=== PATIENT | female | born 1990 | race Caucasian/White ===

== ENCOUNTER 2019-05-01 05:32 | Inpatient (IN) ==
[2019-05-01] MEDS ORDERED: KEFZOL 1 GM/D5W 1 GM/50 ML IVPB IV PRN (05:36)
[2019-05-01] MEDS ORDERED: ZOFRAN IV PRN (05:36)
[2019-05-01] MEDS ORDERED: PEPCID IV PRN (05:36)
[2019-05-01] MEDS ORDERED: REGLAN PO PRN (05:36)
[2019-05-01] MEDS ORDERED: STADOL IV PRN (05:36)
[2019-05-01] MEDS ORDERED: PEPCID PO PRN ×2 (05:36)
[2019-05-01] MEDS ORDERED: TYLENOL PO PRN (05:36)
[2019-05-01] MEDS ORDERED: SODIUM CHLORIDE 0.9% INJ SCH (05:45)
[2019-05-01 06:18] LABS: BASO# 0.04 X1000 (0.0-0.2); BASO% 0.2 % (0.0-0.8); EOS% 1.2 % (0.0-10.0); HEMATOCRIT 35.1 % (37.0-47.0); HEMOGLOBIN 11.7 g/dL (12.0-16.0); IMM GRAN# 0.08 X1000 (0.0-0.04); IMM GRAN% 0.5 % (0.0-0.5); LYMPH# 2.69 X1000 (1.2-3.4); LYMPH% 16.5 % (20.5-51.1); MCH 29.2 PG (27-31); MCHC 33.3 g/dL (33-37); MCV 87.5 FL (81-99); MONO# 1.27 X1000 (0.11-0.59); MONO% 7.8 % (1.7-9.3); MPV 10.7 FL (7.4-10.4); NEUT# 11.98 X1000 (1.4-6.5); NEUT% 73.8 % (42.2-75.2); PLT 260 X1000 (130-400); RBC 4.01 XMIL (4.2-5.4); RDW 12.5 % (11.5-14.5); WBC 16.26 X1000 (4.8-10.8)
[2019-05-01] MEDS: LR 1,000 ML IV SCH ×4 (06:19→10:37)
[2019-05-01 06:29] LABS: URINE SOURCE VOIDED
[2019-05-01] MEDS ORDERED: PITOCIN 30 UNITS/NS 30 UNIT/500 ML IV.SOLN IV SCH ×2 (06:30→16:45)
[2019-05-01 06:46] LABS: BILIRUBIN URINE NEGATIVE (NEGATIVE); BLOOD URINE SMALL (NEGATIVE); CLARITY CLEAR (CLEAR); COLOR YELLOW; GLUCOSE URINE NEGATIVE (NEGATIVE); KETONE URINE NEGATIVE (NEGATIVE); LEUKOCYTES URINE LARGE (NEGATIVE); NITRITE URINE NEGATIVE (NEGATIVE); PH URINE 6.5; PROTEIN URINE NEGATIVE (NEGATIVE); UROBILINOGEN URINE 0.2 EU/dL (0.2-1.0)
[2019-05-01 06:47] LABS: UR AMPHETAMINES QUAL NONE DETECTED (NONE DETECT); UR BARBITUATES QUAL NONE DETECTED (NONE DETECT); UR BENZODIAZEPIN QUAL NONE DETECTED (NONE DETECT); UR CANNABINOIDS QUAL NONE DETECTED (NONE DETECT); UR COCAINE QUAL NONE DETECTED (NONE DETECT); UR METHADONE QUAL NONE DETECTED (NONE DETECT); UR OPIATES QUAL NONE DETECTED (NONE DETECT); UR OXYCODONE QUAL NONE DETECTED (NONE DETECT); UR PCP QUAL NONE DETECTED (NONE DETECT)
[2019-05-01] MEDS ORDERED: MARCAINE 0.25% PF INJ ONE (07:45)
[2019-05-01] MEDS ORDERED: FENTANYL-BUPIV-NS 2 MCG-0.1% 250 ML EPIDURAL SCH (08:00)
--- NOTE | 2019-05-01 09:17 | HISTORY AND PHYSICAL ---
HISTORY OF PRESENT ILLNESS: The patient is a 28-year-old white female G3, P2, at 39 weeks gestation with a favorable cervix who will be scheduled for induction of labor. Her due date is based on a first-trimester ultrasound. care was unremarkable. The patient has a history of 2 prior spontaneous vaginal deliveries. Group B strep culture was negative. PAST MEDICAL HISTORY: Unremarkable. PAST SURGICAL HISTORY: None. PAST OB HISTORY: G3, P2. Spontaneous vaginal delivery x2. Largest was 8 pounds. [employer] WORKER HISTORY: Menarche at age 11. REVIEW OF SYSTEMS: All systems reviewed and noncontributory. FAMILY HISTORY: Significant for diabetes mellitus and high blood pressure. SOCIAL HISTORY: Tobacco use none. Alcohol use none. MEDICATIONS: vitamins. ALLERGIES: To latex. PHYSICAL EXAMINATION: VITAL SIGNS: Height 5 feet 6 inches, weight 207 pounds. Temperature 97.4 degrees, blood pressure 115/67, pulse of 82, respirations 18. heart rate in the 130s with positive accelerations. HEENT: Pupils equal, round, reactive to light and accommodation. Extraocular movements intact. Oropharynx clear. NECK: Supple. No thyromegaly. LUNGS: Clear to auscultation. HEART: Regular rate and rhythm. ABDOMEN: Gravid, nontender. Cervix was 2 cm dilated, 40% effaced, -2 station. Vertex presentation was noted. The patient had artificial rupture of membranes with clear fluid noted. EXTREMITIES: No clubbing, cyanosis, or edema noted. NEUROLOGIC: Cranial nerves 2-12 grossly intact. Motor 5/5. DTRs 2+ bilaterally. ASSESSMENT AND PLAN: A 28-year-old white female G3, P2 at 39 weeks gestation by first-trimester ultrasound for induction of labor. Patient will be started on Pitocin. May have epidural when desired. Anticipate vaginal delivery. cc: Brent Juarez III, MD
[2019-05-01] MEDS ORDERED: MINERAL OIL PO ONE (16:05)
[2019-05-01] MEDS ORDERED: XYLOCAINE-MPF 1% INJ ONE (16:10)
[2019-05-01] MEDS ORDERED: XYLOCAINE-MPF 1% INJ PRN (16:32)
[2019-05-01] MEDS ORDERED: BENADRYL IV PRN (16:32)
[2019-05-01] MEDS ORDERED: ATARAX PO PRN (16:32)
[2019-05-01] MEDS ORDERED: PITOCIN IM PRN (16:32)
[2019-05-01] MEDS ORDERED: BENADRYL PO PRN (16:32)
[2019-05-01] MEDS ORDERED: CYTOTEC PO PRN (16:32)
[2019-05-01] MEDS ORDERED: HYDROXYZINE IM PRN (16:32)
[2019-05-01] MEDS ORDERED: BOOSTRIX VACCINE IM ONE (16:32)
[2019-05-01] MEDS ORDERED: NORCO-10 PO PRN (16:32)
[2019-05-01] MEDS ORDERED: PERI MEDS (DERMOPLAST/NUPERCAINAL/TUCKS) MISC PRN (16:32)
[2019-05-01] MEDS ORDERED: MINERAL OIL PO PRN (16:32)
[2019-05-01] MEDS ORDERED: M-M-R II VACCINE SUBQ ONE (16:32)
[2019-05-01] MEDS ORDERED: PITOCIN 20 UNITS/NS 20 UNITS/1,000 ML IV.SOLN IV SCH (16:45)
--- NOTE | 2019-05-01 18:47 | OPERATIVE NOTE ---
PROCEDURE DATE: 05/01/2019 DESCRIPTION OF DELIVERY: Patient progressed to complete pushing. Had spontaneous vaginal delivery of a female , 5 pounds 10 ounces with Apgars of 9 and 10 at 1552 on 05/01/2019 over second-degree midline episiotomy. Cord blood sample was obtained at this time. Difficulty with the placenta which needed to be removed by manual extraction due to retention. We will send the placenta to pathology secondary to this diagnosis. Second-degree midline episiotomy repaired with 3-0 chromic. ANESTHESIA: Epidural. ESTIMATED BLOOD LOSS: 200 mL. COUNTS: All counts were correct x2. cc: Brent Juarez III, MD
[2019-05-01] MEDS: MOTRIN PO PRN (19:21)
[2019-05-01] MEDS: PERICOLACE PO SCH (22:17)
[2019-05-01] MEDS: AMBIEN PO PRN (22:17)
[2019-05-01] MEDS: NORCO-5 PO PRN (22:23)
[2019-05-02] MEDS: MOTRIN PO PRN ×3 (04:39→19:55)
[2019-05-02 05:26] LABS: BASO# 0.03 X1000 (0.0-0.2); BASO% 0.2 % (0.0-0.8); EOS# 0.18 X1000 (0.0-0.7); HEMATOCRIT 30.8 % (37.0-47.0); HEMOGLOBIN 10.1 g/dL (12.0-16.0); IMM GRAN# 0.07 X1000 (0.0-0.04); IMM GRAN% 0.4 % (0.0-0.5); LYMPH# 2.46 X1000 (1.2-3.4); LYMPH% 13.7 % (20.5-51.1); MCHC 32.8 g/dL (33-37); MCV 88.5 FL (81-99); MONO# 1.11 X1000 (0.11-0.59); MONO% 6.2 % (1.7-9.3); MPV 10.7 FL (7.4-10.4); NEUT# 14.14 X1000 (1.4-6.5); NEUT% 78.5 % (42.2-75.2); PLT 222 X1000 (130-400); RBC 3.48 XMIL (4.2-5.4); RDW 12.7 % (11.5-14.5); WBC 17.99 X1000 (4.8-10.8)
--- NOTE | 2019-05-02 07:31 | OB/GYN PROGRESS NOTE ---
- Subjective Pt seen and examined. Currently without complaints. Ambulating and urinating without difficulty. tolerating regular diet. Denies fever, chills, n/v. +Bottle feeding. OB Physical Exam Vital Signs - 8 hr 05/01/19 23:50 05/02/19 04:42 Temperature 97.9 F Pulse Rate 75 80 Respiratory Rate 16 16 Blood Pressure 105/52 100/64 O2 Sat by Pulse Oximetry 98 98 - CONSTITUTIONAL General Appearance: appears well, alert, no apparent distress - RESPIRATORY Respiratory: lungs clear, normal breath sounds - CARDIOVASCULAR Cardiovascular: regular rate, rhythm - GASTROINTESTINAL (ABDOMEN) Abdominal Exam: non tender (FF at umbilicus), soft - GENITOURINARY Female Genitalia/Pelvic Exam: external exam normal (decreased lochia) - MUSCULOSKELETAL Extremity: non-tender, no calf tenderness - PSYCHIATRIC Psych/Mental Status: normal mood/affect, oriented x 3 Active Medications Generic Name Dose Route Start Last Admin Trade Name Freq PRN Reason Stop Dose Admin Acetaminophen 650 mg 05/01/19 05:36 Tylenol PO Q4-6H PRN PRN Headache Hydrocodone Bitart/Acetaminophen 1 each 05/01/19 16:32 Tyler-10 PO Q3-4H PRN PRN Pain (7-10 on Pain Scale) Hydrocodone Bitart/Acetaminophen 1 each 05/01/19 16:32 05/01/19 22:23 Tyler-5 PO 1 each Q3-4H PRN PRN Administration Pain (1-6 on Pain Scale) Benzocaine 1 each 05/01/19 16:32 05/01/19 18:19 Narda Meds (Dermoplast/Nupercainal/Tucks) MISC 1 applic 3-4XDAY PRN PRN Administration episiotomy/hemorrhoids Diphenhydramine HCl 25 mg 05/01/19 16:32 Benadryl PO Q4H PRN PRN Itching Diphenhydramine HCl 12.5 mg 05/01/19 16:32 Benadryl IV Q4H PRN PRN Itching Famotidine 40 mg 05/01/19 05:36 Pepcid PO Q12H PRN PRN GI upset or indigestion Famotidine 20 mg 05/01/19 05:36 Pepcid PO PRN PRN C SECTION Hydroxyzine HCl 50 mg 05/01/19 16:32 Hydroxyzine IM Q3-4H PRN PRN Nausea Hydroxyzine HCl 50 mg 05/01/19 16:32 Atarax PO Q3-4H PRN PRN Nausea Lactated Ringer's 1,000 mls @ 0 mls/hr 05/01/19 05:45 05/01/19 10:37 Lr IV 125 mls/hr .Q0M MONA Administration As Directed Oxytocin/Sodium Chloride 20 units in 1,000 mls @ 0 mls/hr 05/01/19 16:45 05/01/19 16:53 Pitocin 20 Units/Ns IV 125 mls/hr .Q0M MONA Administration As Directed Ibuprofen 800 mg 05/01/19 16:32 05/02/19 04:39 Motrin PO 800 mg Q8H PRN PRN Administration cramping Misoprostol 800 microgm 05/01/19 16:32 Cytotec PO PRN PRN Severe bleeding Senna/Docusate Sodium 1 each 05/01/19 21:00 05/01/19 22:17 Pericolace PO 1 each QHS MONA Administration Sodium Chloride 5 - 10 ml 05/01/19 05:45 Sodium Chloride 0.9% INJ DIRECTED MONA Zolpidem Tartrate 10 mg 05/01/19 16:32 05/01/19 22:17 Ambien PO 10 mg HS PRN PRN Administration Sleep Laboratory Results - last 24 hr 05/01/19 05/02/19 06:08 05:00 WBC 17.99 H RBC 3.48 L Hgb 10.1 L Hct 30.8 L MCV 88.5 MCH 29.0 MCHC 32.8 L RDW Std Deviation 12.7 Plt Count 222 MPV 10.7 H Immature Gran % (Auto) 0.4 Neut % (Auto) 78.5 H Lymph % (Auto) 13.7 L [place] % (Auto) 6.2 Eos % (Auto) 1.0 Baso % (Auto) 0.2 Immature Gran # (Auto) 0.07 H Neut # (Auto) 14.14 H Lymph # (Auto) 2.46 [place] # (Auto) 1.11 H Eos # (Auto) 0.18 Baso # (Auto) 0.03 Rubella Immunity Screen IMMUNE - Assessment & Plan (1) Vaginal delivery Status: Acute - Progress Note Disposition: 28yo PPD#1 s/p -HD stable -reg diet -oob to ambulation -con't pp care -plan for Mirena IUD -plan for d/c home tomorrow
[2019-05-02] MEDS: NORCO-5 PO PRN (16:09)
[2019-05-02] MEDS: PERICOLACE PO SCH (21:08)
[2019-05-02] MEDS: AMBIEN PO PRN (21:08)
[2019-05-03 07:04] VITALS: BP 95/56
--- NOTE | 2019-05-03 07:10 | OB/GYN PROGRESS NOTE ---
Progress Note OB - . Patient Problems: Current Active Problems Problem Status Onset Vaginal delivery Acute Elective induction of labor planned Acute OB Progress Note: Vital Signs - 24 hr 05/02/19 07:42 05/02/19 12:53 05/02/19 16:00 Temperature 98.5 F 98.3 F 97.7 F Pulse Rate 95 H 72 79 Respiratory Rate 20 20 20 Blood Pressure 121/60 109/61 105/55 O2 Sat by Pulse Oximetry 100 100 99 05/02/19 21:10 05/03/19 07:02 Temperature 97.2 F L 97.3 F L Pulse Rate 82 76 Respiratory Rate 18 18 Blood Pressure 115/58 95/56 O2 Sat by Pulse Oximetry 100 100 28 yo PPD#2 s/p at 39 weeks Patient seen and examined. She denies any complaints. Her pain is controlled. She is ambulating and voiding without difficulty. She is tolerating a regular diet, denies nausea/vomiting. She denies any fever/chills. She notes minimal lochia. She is bottlefeeding. She plans for mirena for PP contraception. Physical Exam-General - PHYSICAL EXAM-ADULT Initial Vital Signs Reviewed: Yes - CONSTITUTIONAL General Appearance: appears well, alert, no apparent distress - EYES Eyes: PERRL/EOMI - RESPIRATORY Respiratory: lungs clear, normal breath sounds, no respiratory distress - CARDIOVASCULAR Cardiovascular: normal peripheral pulses, regular rate, rhythm, no edema - GASTROINTESTINAL (ABDOMEN) Abdominal Exam: normal bowel sounds, non tender, soft, other (fundus firm, below umbilicus) - MUSCULOSKELETAL Extremity: normal range of motion, non-tender, no pedal edema Assessment/Plan - Assessment/Plan Assessment: 28 yo PPD#2 s/p at 39 weeks 1. HD stable, afebrile 2. Routine PP care 3. D/C home today 4. Return to clinic in 6 weeks for PP visit 5. Desires Mirena for pp contraception 6. Bottlefeeding
[2019-05-03] MEDS: MOTRIN PO PRN (07:59)
--- NOTE | 2019-05-04 08:23 | DISCHARGE SUMMARY ---
ADMISSION DATE: 05/01/2019 DISCHARGE DATE: 05/03/2019 ADMITTING PHYSICIAN: Dr. Jonas Juarez. CONDITION ON DISCHARGE: Stable. FINAL DIAGNOSIS: A 28-year-old, G 3, P 3-0-0-3 day #2 status post spontaneous vaginal delivery at 39 weeks. PROCEDURE: Spontaneous vaginal delivery performed on 05/01/2019. HOSPITAL COURSE: The patient was admitted to Labor and Delivery for an elective induction of labor at 39 weeks. She has received care with Dr. Juarez. This is uncomplicated. GBS is negative. She underwent a spontaneous vaginal delivery on May 01. She had a routine course. On day #2, she was ambulating and voiding without difficulty. She is tolerating a regular diet. Denied nausea and vomiting. She had minimal lochia. She is bottle-feeding. She had an infant girl. She desires Mirena for contraception. She will be discharged home in stable condition. DISCHARGE MEDICATIONS: Motrin 800 mg p.o. q. 8 hours p.r.n. pain. DISCHARGE INSTRUCTIONS: The patient is instructed to notify doctor with temperature greater than 100.4 degrees Fahrenheit, vaginal bleeding greater than 1 pad an hour, foul- smelling discharge, severe abdominal pain. She was instructed to place nothing in her vagina for 6 weeks. No tampons/douching/sex. FOLLOW-UP APPPOINTMENT: Patient instructed to follow up with Dr. Juarez in 6 weeks for visit and possible Mirena placement. cc: MD MONTSERRAT Anthony III
== END 2019-05-03 12:15 | disposition home or self-care (01) | DRG 807 ==
LOC: LD 05:32
PROVIDERS: ADMIT Obstetrics & Gynecology; ATTEND Obstetrics & Gynecology